=== PATIENT | female | born 1990 | race Caucasian/White ===

== ENCOUNTER 2018-04-08 12:05 | Inpatient (IN) ==
[2018-04-08] MEDS ORDERED: ONDANSETRON 4 MG/2 ML VIAL IV PRN ×2 (12:31→22:28)
[2018-04-08] MEDS ORDERED: LACTATED RINGERS 1,000 ML IV PRN (12:31)
[2018-04-08] MEDS ORDERED: BUTORPHANOL 2 MG/ML VIAL IV PRN (12:31)
[2018-04-08 12:53] LABS: Basophils % 0.3 % (0.0-0.8); Eosinophils # 0.1 10*3/uL (0.0-0.87); Eosinophils % 0.5 % (0.00-10.9); Hemoglobin 13.4 GM/DL (12.0-16.0); Immature Granulocytes % 0.6 %; Immature Granulocytes Absolute 0.07 #; Lymphocytes # 2.4 10*3/uL (1.4-4.0); Lymphocytes % 20.3 % (21.3-54.2); Mean Corpuscular HGB Conc 35.3 GM/DL (32-36); Mean Corpuscular Hemoglobin 32 PG (27-34); Mean Corpuscular Volume 89.6 FL (87-102); Mean Platelet Volume 12.6 FL (9.6-12.0); Monocytes # 0.6 10*3/uL (0.11-0.8); Monocytes % 5.2 % (1.7-12.7); Neutrophils # 8.5 10*3/uL (1.4-7.4); Neutrophils % 73.1 % (38.7-73.9); Platelet Count 163 T/CUMM (130-400); Red Blood Count 4.24 MC/CUMM (3.8-5.5); Red Cell Distribution Width 12.9 % (9.3-17.3); White Blood Count 11.6 T/CUMM (4-12)
[2018-04-08] MEDS ORDERED: LACTATED RINGERS 1,000 ML IV SCH (13:00)
[2018-04-08] MEDS: OXYTOCIN/LR 20 UNIT/1,000 ML BAG IV SCH ×2 (13:18→21:00)
[2018-04-08] MEDS: AMPICILLIN INJ 2,000 MG in SODIUM CHLORIDE 0.9% 100 ML IV SCH ×2 (13:18→18:38)
[2018-04-08] MEDS ORDERED: hydrOXYzine HCL 25 MG/1 ML VIAL IM PRN (13:26)
[2018-04-08] MEDS ORDERED: FAMOTIDINE 20 MG/2 ML VIAL IV ONE (13:26)
[2018-04-08] MEDS ORDERED: PROMETHAZINE 25 MG/1 ML VIAL IM ONE (13:26)
[2018-04-08] MEDS ORDERED: diphenhydrAMINE 50 MG/1 ML VIAL IV PRN ×2 (13:26)
[2018-04-08] MEDS ORDERED: ONDANSETRON 4 MG/2 ML VIAL IV ONE (13:26)
[2018-04-08] MEDS ORDERED: NALOXONE 0.4 MG/ML VIAL IV PRN (13:26)
[2018-04-08] MEDS ORDERED: ePHEDrine 50 MG/ML AMP IV PRN (13:26)
[2018-04-08] MEDS ORDERED: CITRIC ACID/SODIUM CITRATE 30 ML UDCUP PO ONE (13:26)
[2018-04-08] MEDS ORDERED: fentaNYL 2 MCG/ROPIV 0.2% EPID 100 ML EPIDURAL SCH (13:30)
[2018-04-08] MEDS ORDERED: INFLUENZA VIRUS VACCINE 0.5 ML SYRINGE IM ONE (13:52)
[2018-04-08 14:01] LABS: HIV Antigen/Antibody Result Nonreactive (Nonreactive)
[2018-04-08 16:07] LABS: Apearance,Urine CLEAR (Clear); Bilirubin,Urine Negative (Negative); Blood, Urine Negative (Negative); Glucose,Urine (UA) Negative (Negative); Ketones,Urine Negative (Negative); Nitrite,Urine Negative (Negative); Protein,Urine Negative; RBC,Urine 1 /HPF (0-4); Squamous Epithelial Cell,Urine Occasional /HPF (0-10); Urine Color Straw (Yellow); Urine Specific Gravity 1.005 (1.001-1.035); Urine Urobilinogen < 2.0 EU/DL (0.2-1.0); WBC,Urine <1 /HPF (0-6)
[2018-04-08] MEDS ORDERED: LIDOCAINE 1% 50 ML VIAL ONE (22:01)
[2018-04-08] MEDS ORDERED: CARBOPROST TROMETHAMINE 250 MCG/ML AMP IM ONE (22:02)
[2018-04-08] MEDS ORDERED: METHYLERGONOVINE 0.2 MG/1 ML AMP ONE (22:02)
[2018-04-08] MEDS ORDERED: miSOPROStol 200 MCG TABLET ONE (22:02)
[2018-04-08] MEDS ORDERED: OXYTOCIN/LR 20 UNIT/1,000 ML BAG IV ONE (22:28)
[2018-04-08] MEDS ORDERED: RHO(D) IMMUNE GLOBULIN 300 MCG SYRINGE IM ONE (22:28)
[2018-04-08] MEDS ORDERED: HYDROCORTISONE 2.5% RECTAL CREAM 30 GM TUBE TOP PRN (22:28)
[2018-04-08] MEDS ORDERED: ACETAMINOPHEN 325 MG TABLET PO PRN (22:28)
[2018-04-08] MEDS ORDERED: oxyCODONE/ACETAMINOPHEN 5-325 MG TABLET PO PRN (22:28)
[2018-04-08] MEDS ORDERED: DIPH/TET/ACEL PERT BOOSTER VACCINE 0.5 ML VIAL IM ONE (22:28)
[2018-04-08] MEDS ORDERED: WITCH HAZEL PADS 100/JAR TOP PRN (22:28)
[2018-04-08] MEDS ORDERED: LANOLIN 50% CREAM 0.3 OZ TUBE TOP PRN (22:28)
[2018-04-08] MEDS ORDERED: MEASLES/MUMPS/RUBELLA VACCINE 0.5 ML VIAL SUBCUT ONE (22:28)
[2018-04-08] MEDS ORDERED: BENZOCAINE 20%/MENTHOL 0.5% SPRAY 56 GM CAN TOP PRN (22:28)
[2018-04-08] MEDS ORDERED: BISACODYL 10 MG SUPP RECTAL PRN (22:28)
[2018-04-08 22:31] LABS: Cord Venous Blood HCO3 20.3 MMOL/L; Cord Venous Blood PCO2 37.7 MMHG; Cord Venous Blood PO2 35.2 MMHG
[2018-04-09] MEDS: oxyCODONE/ACETAMINOPHEN 5-325 MG TABLET PO PRN ×3 (01:07→20:56)
[2018-04-09] MEDS: IBUPROFEN 800 MG TABLET PO PRN ×2 (03:59→16:08)
[2018-04-09 04:24] LABS: Basophils # 0.1 10*3/uL (0.0-0.2); Basophils % 0.3 % (0.0-0.8); Eosinophils % 0.2 % (0.00-10.9); Hematocrit 34.3 VOL% (35.7-47.0); Immature Granulocytes % 0.9 %; Immature Granulocytes Absolute 0.18 #; Lymphocytes # 2.8 10*3/uL (1.4-4.0); Lymphocytes % 13.4 % (21.3-54.2); Mean Corpuscular Hemoglobin 31 PG (27-34); Mean Corpuscular Volume 89.6 FL (87-102); Mean Platelet Volume 12.6 FL (9.6-12.0); Monocytes # 0.7 10*3/uL (0.11-0.8); Monocytes % 3.2 % (1.7-12.7); Platelet Count 147 T/CUMM (130-400); Red Blood Count 3.83 MC/CUMM (3.8-5.5); Red Cell Distribution Width 12.8 % (9.3-17.3); White Blood Count 20.7 T/CUMM (4-12)
[2018-04-09 06:08] LABS: Band Neutrophils 1 % (0-10); Lymphocytes 8 % (20-55); Segmented Neutrophils 86 % (50-85); Total Cells Counted 100
[2018-04-09 06:09] LABS: Platelet Estimate Decreased
[2018-04-09 06:10] LABS: Giant Platelets Few
[2018-04-09] MEDS: DOCUSATE SODIUM 100 MG CAPSULE PO SCH ×2 (08:58→20:56)
[2018-04-10 03:56] VITALS: BP 121/74
[2018-04-10] MEDS: oxyCODONE/ACETAMINOPHEN 5-325 MG TABLET PO PRN ×2 (04:20→11:11)
[2018-04-10] MEDS: IBUPROFEN 800 MG TABLET PO PRN (04:20)
[2018-04-10] MEDS ORDERED: INFLUENZA VIRUS VACCINE 0.5 ML SYRINGE IM ONE (09:00)
[2018-04-10] MEDS: DOCUSATE SODIUM 100 MG CAPSULE PO SCH (09:22)
== END 2018-04-10 11:45 | disposition home or self-care (01) | DRG 560 ==
LOC: N.LDOUT 12:05 → N.LD 12:06 → N.OB 04-09 00:45 → N.LD 04-09 17:45
PROVIDERS: ADMIT Specialist; ATTEND Specialist